=== PATIENT | male | born 1955 | race Caucasian/White ===

== ENCOUNTER 2024-01-11 03:53 | Emergency (ER) | payer MEDICAID, MEDICARE ==
[~2024-01-11] VITALS: Ht 185.4 cm; Wt 77.0 kg
[~2024-01-11 03:53] MED LIST: NO HOME MEDS
[2024-01-11] MEDS: clindamycin 150mg capsule PO ONE (04:18)
[2024-01-11] MEDS ORDERED: CLIN300C63 PO (06:02)
[2024-01-11 06:04] VITALS: BP 129/92; PULSE 77; RESP 16; TEMP 98.1; O2SAT 100
== END 2024-01-11 06:14 | disposition home or self-care (01) ==
LOC: ER 03:54
DX: L02.11 Cutaneous abscess of neck (principal)
CPT/HCPCS: 99283

== ENCOUNTER 2024-01-13 13:19 | Emergency (ER) | payer MEDICARE ==
[~2024-01-13] VITALS: Ht 182.9 cm; Wt 80.0 kg
[~2024-01-13 13:19] MED LIST changes: +CLIN300C63 PO
[2024-01-13 13:32] VITALS: BP 147/98; PULSE 87; RESP 16; O2SAT 99
[2024-01-13 18:16] VITALS: TEMP 98.4
== END 2024-01-13 17:46 | disposition home or self-care (01) ==
LOC: ER 13:20
DX: L72.3 Sebaceous cyst (principal); Z79.2 Long term (current) use of antibiotics
CPT/HCPCS: 99281; A6402; A6449